=== PATIENT | female | born 1950 | race Caucasian/White ===

== ENCOUNTER → 2017-06-14 | Outpatient (CLI) | payer MEDICARE, OTHER ==
[~2017-06-14] MED LIST: APRACLONIDINE 1% 0.1 ML OPH ONE; PILOCARPINE 2% 15ML OPH ONE; PROPARACAINE 0.5% 15 ML OPH ONE
== END | disposition home or self-care (01) ==
LOC: RAD 08:01
PROVIDERS: ATTEND Ophthalmology
DX: H40.20X0 Unspecified primary angle-closure glaucoma, stage unspecified (principal)
CPT/HCPCS: 66761